=== PATIENT | male | born 1960 | race Caucasian/White ===

== ENCOUNTER 2019-03-14 07:01 | Outpatient (CLI) | payer BC, SELFPAY ==
[2019-03-14 07:22] VITALS: BMI 34.1
--- NOTE | 2019-03-14 07:23 | NMCV_ITS ---
NM mackenzie perf SPECT r/s* [id number] Joaquin Shin Age: 58 Gender: M : 1960 Exam Date: 03/14/2019 08:09 Ordering Phys: Radu Luevano PA-C XX Technologist: PAUL Ramos Exam Location: [facility] Indications: Chest pressure, hypertention, hyperlipidemia STRESS TEST Please see separate stress test report in [facility] for full findings IMAGE PROTOCOL Rest/Stress 1 Exercise Day Radiopharmaceutical Dose (mCi) Administration Site Administered by Rest: Tc-99m 10.7 IV PAUL Ramos Sestamibi Stress:Tc-99m 32.4 IV PAUL Ramos Sestamimarima Rest: 14-Mar-2019 60 Discovery 630 Stress: 14-Mar-2019 30 Discovery 630 Radiopharmaceutical was injected at 85 % maximum heart rate. Images obtained in supine and prone position. SPECT RESULTS Technical Quality: Good Raw Data Analysis: Adequate Image Corrections: Patient motion artifact - motion correction applied to stress images. Summed Stress Score: 5 Summed Rest Score: 6 Summed Difference Score: 1 PERFUSION FINDINGS Medium-size area of decreased tracer uptake noted from basal to distal inferior inferoseptal and inferolateral wall on the rest images which improved significantly over stress images suggestive of artifact. FUNCTIONAL RESULTS (calculated via Gated SPECT) Stress Image LV EF (%): 61 Stress EDV (mL):87 TID: 1 Stress ESV (mL):34 Rest Image LV EF (%): 1 FUNCTIONAL FINDINGS: There is normal left ventricular systolic function. IMPRESSIONS Myocardial perfusion imaging is normal and low probability for obstructive coronary artery disease. EKG segment will be augmented separately. Pradeep Sumner MD (Electronically Signed) Final Date: 15 March 2019 09:58 S
--- NOTE | 2019-03-14 07:23 | ECG_ITS ---
NAME OF STUDY: EXERCISE SESTAMIBI STRESS TEST INDICATION: Chest Pain, EXERCISE TREADMILL STRESS ORDERING PHYSICIAN: Gerald Luevano CLINICAL INFORMATION: Unknown INTERPRETATION: 1. The patient exercised for 10 minutes and 6 seconds on a Nato protocol. He reached a maximum heart rate of 147 beats per minute, which is 89 % of his maximum predicted heart rate. The test was stopped due to achieving the desired heart rate. 2. The baseline electrocardiogram reveals sinus rhythm with unusual R wave progression and LVH by voltage. 3. With exercise, there were no ST segment changes to suggest ischemia. 4. The resting blood pressure was 141/95. The maximum blood pressure was 198/108. 5. At maximum exercise, the patient achieved 13.5 METs with a rate pressure product of 289. 6. The patient experienced no chest pain or arrhythmias during the examination. CONCLUSION: 1. Normal exercise treadmill test. 2. Average exercise capacity for age. 3. Hypertensive blood pressure response to exercise. 4. Nuclear imaging to follow Electronically Signed On 03-14-2019 17:49:26 MATH AND SCIENCES DEPARTMENT CHAIR by Arcenio Gross M.D. [email or web address]
[2019-03-14 09:24] VITALS: PULSE 95
== END 2019-03-14 07:02 | disposition home or self-care (01) ==
LOC: CDL 07:05
PROVIDERS: Family Provider Physician Assistant Medical; Visit Provider Physician Assistant Medical
DX: R07.89 Other chest pain (principal); I10 Essential (primary) hypertension; E78.5 Hyperlipidemia, unspecified
CPT/HCPCS: 78452; 93017; A9500

== ENCOUNTER 2020-12-06 13:29 | Outpatient (CLI) | payer OTHER, SELFPAY ==
--- NOTE | 2020-12-06 13:38 | CT_ITS ---
WS: [id number] CT CHEST, ABDOMEN AND PELVIS WITH CONTRAST HISTORY: HX OF RECTAL CANCER, short of breath and chest pressure. TECHNIQUE: Contiguous 5 mm axial imaging performed through the chest, abdomen and pelvis with IV cont rast, oral contrast has been provided. Coronal and sagittal reformats chest. Coronal and sagittal ref ormats through the abdomen and pelvis. All CT scans at [facility] use at least one of these d ose optimization techniques: automated exposure control; mA and/or kV adjustment per patient size (in cludes targeted exams where dose is matched to clinical indication); or iterative reconstruction. CONTRAST: Omnipaque 300; 120 mL IV. DLP: 2112.05 mGy.cm COMPARISON: 04/16/[address]: No pulmonary mass or suspicious nodules. There is a micronodule in the LEFT upper lobe. No pneumonia. No effusions. Heart size is normal. No pericardial or pleural effusion. Mild atheroscleros is aorta. No aneurysm of aorta. Normal size pulmonary artery. No mediastinal or hilar adenopathy. Purvi y small hiatal hernia. Abdomen CT: Previously described hemangioma adjacent to the falciform ligament is very small and near ly completely fills in on today's study. No new or additional masses. Normal portal vein. Gallbladder , pancreas, spleen and adrenal glands are negative. Normal size kidneys. Exophytic RIGHT renal cyst w ith a maximum diameter of 2.7 cm is unchanged. Bilateral parapelvic cysts with no obstruction. Mild a therosclerosis aorta. No ascites or adenopathy within the abdomen. The appendix is normal. No GI tract obstruction. No abnormality noted at the rectum. Pelvic CT: No free fluid or adenopathy in the pelvis. Urinary bladder is normal. No enlargement of th e prostate gland. No osteoblastic or osteolytic bone disease. CT/CT chest abd pel w con* IMPRESSION: 1. No evidence for metastatic disease within the chest, abdomen or pelvis. 2. RIGHT renal cysts and benign bilateral parapelvic cysts within each kidney. 3. Normal appendix. 4. No mediastinal, retroperitoneal and mesenteric adenopathy.
[2020-12-06] MEDS: iohexol 300 mg/mL 50 mL Btl PO (15:06)
[2020-12-06] MEDS: iohexol 300 mg/mL 100 mL Btl IV (15:07)
== END 2020-12-06 13:30 | disposition home or self-care (01) ==
LOC: RAD 13:32
PROVIDERS: PCP Physician Assistant Medical; Visit Provider Colon & Rectal Surgery
DX: Z85.048 Personal history of other malignant neoplasm of rectum, rectosigmoid junction, and anus (principal); R06.02 Shortness of breath; R07.9 Chest pain, unspecified; Q61.02 Congenital multiple renal cysts
CPT/HCPCS: 71260; 74177

== ENCOUNTER 2020-12-07 10:40 | Outpatient (CLI) | payer OTHER, SELFPAY ==
[2020-12-07 12:39] LABS: Basophils % 0.3 %; Eosinophils # 0.1 10^3/uL (0.0-0.8); Eosinophils % 1.3 %; Hemoglobin 15.3 g/dL (11.7-16.6); Lymphocytes # 1.5 10^3/uL (0.8-4.8); Lymphocytes % 19.8 %; Mean Corpuscular HGB Conc 33.3 g/dL (30.0-36.0); Mean Corpuscular Hemoglobin 30.9 pg (28.0-34.0); Mean Corpuscular Volume 92.9 fl (80-94); Mean Platelet Volume 9.6 fL (7.4-10.4); Monocytes # 0.5 10^3/uL (0.2-0.9); Monocytes % 6.3 %; Neutrophils # 5.49 10^3/uL (1.8-7.7); Neutrophils % 71.9 %; Nucleated Red Blood Cells % 0 %; Platelet Count 237 10^3/cmm (130-400); Red Blood Count 4.95 10^6/uL (4.1-5.3); White Blood Count 7.6 10^3/uL (4.0-10.0)
[2020-12-07 13:22] LABS: Carcinoembryonic Antigen 2.7 ng/mL (0.0-4.7)
[2020-12-07 14:58] LABS: LAB Peripheral Smear Sent for Review
--- NOTE | 2020-12-07 16:56 | ONC CON_ITS ---
Dr. Tristan New Patient Note Patient: Joaquin Shin Unit #: [id number]: 1960 Dicatated By: Brian Tristan M.D.Date of Visit: Dec 07, 2020 Onc MED New Patient/Consult Referring Physician: Dr. ADELITA PERDOMO M.D. Chief Complaint: Elevated CEA. History of Present Illness: This is a 60-year-old man with a known history of rectal cancer. I am asked to see him because of an elevated CEA level. In March 2017 he was found on screening colonoscopy to have a 2 cm pedunculated polyp in the rectum at 10 cm from the anal verge. The polyp was removed piecemeal with a hot snare. An additional 5 mm sessile polyp was removed with cold biopsy forceps. The pathology report describes an aggregate of smaller polypoid tissues showing tubulovillous adenoma with moderate, focally severe dysplasia and a larger intact polyp measuring 1.1 cm which showed tubulovillous adenoma with microinvasive adenocarcinoma arising in severe dysplasia/carcinoma in situ. Dysplasia was noted to be extending to the inked margin. The smaller intact polyp showed tubulovillous adenoma with moderate dysplasia which also was noted to be extending to the inked margin. He was referred to Dr. Tipton in [place] and in April 2017 he underwent transanal minimally invasive malignant polyp excision. Pathology was negative for residual dysplasia or invasive carcinoma. A surveillance colonoscopy in December 2018 showed no abnormalities. On a recent follow-up with stephon Luevano he was complaining of significant fatigue and exertional dyspnea. His laboratory studies on 10/29/2020 included CBC showing hemoglobin of 15.9 g with hematocrit 47.8%. The white blood cell count was 9200 and the platelet count was 374,000. The differential at that time did report 11% bands and 2% metamyelocytes along with 60% neutrophils, 23% lymphocytes, and 4% monocytes. Comprehensive metabolic profile showed normal renal function, normal bilirubin, and normal liver enzymes. His B12 level was normal at 1122 pg/mL. His CEA was slightly elevated at 4.3 ng/mL. CT scans of the chest, abdomen, and pelvis on 12/06/2020 showed a micronodule in the upper lobe of the left lung. There were no other pulmonary nodules and there is no mediastinal or hilar adenopathy. A previously described hemangioma adjacent to the falciform ligament appeared to be very small. There are no new or additional masses identified. There is no ascites or adenopathy noted within the abdomen. Overall, there was no evidence for metastatic disease. He complains that he is had no energy for the past couple of years, that has continued to gradually worsen. He gets exhausted with activity, but he is still working 12 to 14 hours a day. He has continued to do all his normal activity, though slower. His ECOG score is 0. He has good appetite. He has had a weight gain in the range of 15 pounds. He has not had fever. About a month ago he was having sweating every night, but that seems to have resolved. He has had decline in his vision and he also has hearing loss. He reports having sore throat and he sometimes has difficulty swallowing. He says he chokes real easily. He gets short of breath with activity and he has a dry cough. He is on CPAP for obstructive sleep apnea. He has been having pressure in the substernal area, mainly at night, though it also occurs with heavy exertion. He had a negative stress test in February 2019. He has no GI or complaints other than occasional acid reflux. He has some joint pain and he has lower back pain. He also complains of having pain on the bottoms of his feet and he is prone to having muscle cramps in his hands. He has chronic headaches. Lately those have been really bad, mainly in the right frontal area. He sometimes has orthostatic lightheadedness. He has numbness in his neck and left arm and he has carpal tunnel symptoms bilaterally. He has restless leg syndrome, though it is pretty well controlled with the ropinirole. Past Medical History: He has a history of rectal cancer. His other medical history includes carpal tunnel syndrome, degenerative arthritis, hypertension, obstructive sleep apnea, and restless leg syndrome. Past Surgical History: His surgical/procedural history includes colonoscopy in 2019, transanal malignant polyp excision in 2018, right rotator cuff repair in 2017, and left rotator cuff repair in 2005. Medications: amLODIPine Besylate 1 Tablet (of 10 mg) Oral daily, Losartan Potassium 1 Tablet (of 50 mg) Oral daily, rOPINIRole HCl 2 Tablet (of 5 mg) Oral at bedtime Allergies: No Known Allergies. Social History: Mr. Shin has a life partner. 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 He has a history of smoking up to 1 pack of cigarettes daily for 12 to 15 years. He quit smoking 30 years ago. He has a history of at least moderate alcohol use, but over the past several months he has cut down his alcohol use to next to nothing . Family History: Father at age 81, cause unknown to the patient. Mother with dementia at age 88. A half brother has coronary artery disease. A sister has been treated for melanoma. Review Of Symptoms: Constitutional - He complains that he has no energy and that he gets exhausted, though he still works 12 to 14 hours a day. His appetite is good. He has had a weight gain of about 15 pounds. He has not had fever. About a month ago he was having night sweating pretty regularly, but that has resolved. His ECOG score is 0, Eyes - He has had decline in vision, ENMT - He has hearing loss. No tinnitus. No sinus congestion/drainage. No mouth sores. He has sore throat and he sometimes has difficulty swallowing. He says he chokes very easily, Hematologic/Lymphatic - He bleeds easily, Respiratory - He has shortness of breath with activity. He has a dry cough. No pleuritic pain or hemoptysis, Cardiovascular - He has pressure in the substernal area, mainly at night, but also with heavy exertion. No palpitations, Gastrointestinal - No nausea or vomiting. He occasionally has acid reflux. No diarrhea or constipation. No blood in the stool or black stools, Genitourinary (M) - No dysuria or hematuria. No urinary frequency. No urgency or incontinence, Musculoskeletal - He has some soreness in his joints. He has lower back pain. He complains of having pain on the bottoms of his feet, Integumentary - No skin rash or other skin changes, Neurologic - He has chronic headaches, which lately have been really bad. These are mainly in the right frontal area. He sometimes has dizziness. He has numbness in his neck and left arm, and he also has carpal tunnel symptoms bilaterally, Psychiatric - He has some anxiety. No depression. He does not sleep well. He is on CPAP at night. Vital Signs: Performed on Dec 07, 2020 11:05: 7, 0, 33.94 (HIGH), 2.14 sq.m, 68 in, 97 %, 69 /min, 18 /min, 116/75 mm(hg), 97.0 F (LOW), and 223.2 lbs (HIGH). Physical Examination: Constitutional - He appears to be in good general health, Eyes - Sclerae nonicteric. Conjunctivae clear, ENMT - No lesions noted in the oral cavity, Neck - No mass or thyromegaly, Hematologic/Lymphatic - No cervical, clavicular, or axillary adenopathy, Respiratory - Lungs are clear with slightly diminished air movement bilaterally, Cardiovascular - Heart rhythm is regular. There is no murmur, gallop, or rub noted, Abdomen - Soft and non-tender. Liver and spleen are not enlarged. There is no abdominal mass or ascites noted and there is no inguinal adenopathy, Back/Spine - No spine or CVA tenderness noted, Extremities - No edema. Pedal pulses are palpable bilaterally, Integumentary - No rashes. No suspicious skin lesions noted, Neurologic - No focal neurologic deficits noted. Problem List: 1. Patient with history of minimally invasive rectal cancer limited to the rectal polyp and treated in 2018 with transanal minimally invasive malignant polyp excision. He now has a slightly elevated CEA level. The clinical significance is uncertain. 2. He has significant fatigue, exertional dyspnea, and substernal pressure. A specific cause has not been determined. He currently is scheduled to have additional pulmonary and cardiac evaluation. 3. Hypertension. 4. Obstructive sleep apnea. 5. Degenerative arthritis. 6. Bilateral carpal tunnel syndrome. 7. Restless leg syndrome. Problems Addressed with this Encounter and Plan: 1. Patient with history of minimally invasive rectal cancer limited to the rectal polyp and treated in 2018 with transanal minimally invasive malignant polyp excision. He now has a slightly elevated CEA level. He has significant fatigue, exertional dyspnea, and substernal pressure, prompting concern about the possibility of metastatic disease. A slightly elevated CEA as an isolated finding is nonspecific and in the absence of any acute findings on his recent CT scans, the probability of these having metastatic disease is extremely low. As such, I would like to repeat his CEA level today. Unless it is showing a progressive increase, I do not think any further evaluation will be necessary. 2. He had a left shift on his recent CBC. The significance of that finding also is uncertain, but I will repeat his CBC and sed rate today, I also will review the blood smear. He will have further evaluation as indicated. 3. He has chronic headache, which seems to be getting worse. In the context of his fatigue, I will give him the option to have further evaluation with head MRI. However, I will plan to see him again only as needed. Signed By: Brian Tristan M.D. <<Signature on File>>
[2020-12-10 10:22] LABS: Erythrocyte Sedimentation Rate 2 mm/hr (0-10)
== END 2020-12-07 10:41 | disposition home or self-care (01) ==
LOC: ONCMED 10:44
PROVIDERS: PCP Physician Assistant Medical; Visit Provider Internal Medicine Medical Oncology
DX: R97.8 Other abnormal tumor markers (principal); Z85.048 Personal history of other malignant neoplasm of rectum, rectosigmoid junction, and anus; R53.82 Chronic fatigue, unspecified; I10 Essential (primary) hypertension; G47.33 Obstructive sleep apnea (adult) (pediatric); M19.90 Unspecified osteoarthritis, unspecified site; G56.03 Carpal tunnel syndrome, bilateral upper limbs; G25.81 Restless legs syndrome; Z79.899 Other long term (current) drug therapy
CPT/HCPCS: 36415; 82378; 85025; 85651; 99204

== ENCOUNTER 2021-07-23 02:37 | Emergency (ER) | payer OTHER, SELFPAY ==
[2021-07-23 02:42] VITALS: BMI 35.7
[2021-07-23 02:44] VITALS: BP 140/97; PULSE 86; RESP 16; TEMP 36.7; O2SAT 96
--- NOTE | 2021-07-23 02:47 | XRR_ITS ---
PROCEDURE INFORMATION: Exam: XR Chest Exam date and time: 07/23/2021 2:57 AM Age: 60 years old Clinical indication: Pain; Chest pressure; Additional info: Chest pain TECHNIQUE: Imaging protocol: XR of the chest. Views: 1 view. COMPARISON: CT chest abd pel w con* 12/06/2020 3:22 PM FINDINGS: Lungs: There are low lung volumes and crowding of the vascular markings. There are atelectatic changes at the right lung base.There is no evidence of focal pulmonary consolidation. Pleural spaces: No pleural effusion or pneumothorax. Heart/Mediastinum: Normal in size. Bones/joints: No acute fracture is identified. XR/XR chest 1V portable [id number] IMPRESSION: 1. Low lung volumes and crowding of the vascular markings with mild right basilar atelectatic changes. 2. No consolidation.
--- NOTE | 2021-07-23 02:47 | ECG_ITS ---
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 Measurements Intervals [place] Rate: 80 P: 31 AK: 185 QRS: -35 QRSD: 98 T: 11 QT: 373 QTc: 431 Interpretive Statements SINUS RHYTHM POSSIBLE LEFT ATRIAL ENLARGEMENT [-0.1mV P-WAVE IN V1/V2] LEFT AXIS DEVIATION [QRS AXIS < -30] Compared to ECG 04/12/2016 10:51:38 No significant changes Electronically Signed On 07-23-2021 17:54:53 CDT by Darwin Carrera M.D. [id number]
--- NOTE | 2021-07-23 02:47 | ED_ITS ---
HPI - Chest Pain General: Chief Complaint: Chest Pain Stated Complaint: CP Time Seen by Provider: 07/23/21 02:47 History of Present Illness: Mr. Shin is a 60-year-old gentleman with significant past medical history of hypertension presenting to the emergency department due to chest pain. He reports symptom onset at 11 PM woke him up from sleep. He endorses substernal pressure without significant radiation. He has baseline shortness of breath which is well not worse and denies other typical cardiac features. He reports intermittent episodes in the past and apparently has had stress test here as well as had cardiac evaluation at [place] and at [facility]. Overall intensity symptoms moderate. Course has persisted. No significantly from nitroglycerin. No other specific changes in health, exacerbating, or alleviating factors identified. Onset (ago): hour(s) Timing of current episode: constant Prior episodes: Yes Onset: during rest Pain location: substernal Severity: moderate Review of Systems General: Reports: 10 or more systems reviewed and unremarkable except in HPI and below PFSH ED PFSH: Family History (Updated 01/22/21 @ 13:[address]) Sister Cancer Social History (Updated 01/22/21 @ 13:01 by Helen Carbajal, CT) Smoking and tobacco status: former smoker Adopted: No service: No History of recent travel: No Physical Exam Const: COMMON NORMALS: alert GENERAL APPEARANCE: cooperative and well developed HENMT: COMMON NORMALS: normocephalic and atraumatic HEAD & SCALP: normocephalic and atraumatic THROAT: posterior oropharynx normal Eye: COMMON NORMALS: conjunctivae normal CONJUNCTIVA: Yes conjunctivae normal SCLERA: sclerae normal Neck/C-Spine: COMMON NORMALS: supple GENERAL: Yes trachea midline Resp: COMMON NORMALS: normal respiratory effort EFFORT & INSPECTION: Yes able to speak in complete sentences Cardio: COMMON NORMALS: regular rate and regular rhythm RATE: regular rate RHYTHM: regular rhythm GI: COMMON NORMALS: Soft to palpation PALPATION: Yes Soft to palpation and No Tenderness to palpation present (GI) PERCUSSION: normal to percussion Extremity: GENERAL: Yes normal exam except as noted and No edema Neuro: COMMON NORMALS: moves all extremities SENSORIUM/ORIENTATION: Yes alert and No Orientation impaired Psych: COMMON NORMALS: mental status grossly normal and Normal thought process present THOUGHT PROCESS: Normal thought process present Course ED course: - Patient was seen and evaluated by me at bedside - Patient placed on cardiac monitors, IV access obtained - Initial evaluation notable for exam as above - Labs and xrays personally interpreted by me -Aspirin given - Labs notable for no significant logic metabolic abnormality. Troponin and repeat troponin negative. - Imaging notable for no lobar consolidation or pneumothorax - Upon serial reexamination after treatment the patient was improved - Based on patient history, evaluation, and testing as interpreted the most likely cause of the patient's condition is chest pain - The results of ED evaluation were discussed with the patient including possible disposition options. I discussed risk stratification including estimated risk of major cardiac events based on heart score. Given history of stress test patient comfortable with outpatient management. I discussed symptomatic cares (if applicable) including appropriate and responsible use, followup plan, and return precautions. The patient verbalized understanding and felt safe for discharge. - Patient discharged in satisfactory condition. Note: Click bubbles or prepopulated justice in note writing are used for assistance with data collection and billing and are inherently more limited than narrative and other text portions of this note. Please use narrative for additional clinical history and defer to narrative/free test for any case of contradictory information. If information appears in only free text or click bubble it should be considered present or absent as reported. Please contact note communications writer for clarifications of clinical information or contradictory information. MDM is a brief summary, contradictory or erroneous seeming information should be clarified and full note should be reviewed. Vital Signs: Vital signs: Vital Signs Temperature 98.0 F 07/23/21 02:44 Pulse Rate 75 07/23/21 06:02 Respiratory Rate 17 07/23/21 06:02 Blood Pressure 131/91 07/23/21 06:02 Pulse Oximetry 98 07/23/21 06:02 MDM - Chest Pain Medical Decision Making 60-year-old gentleman presenting with chest pain. Patient had stress test and PFTs in December 2020. Troponins negative. Satisfactory for outpatient management. Medical Records I reviewed the patient's medical records. Lab Data I reviewed the patient's lab results. : 07/23/21 03:20 07/23/21 03:20 Radiology Impressions Chest X-Ray 07/23/21 02:47 IMPRESSION: 1. Low lung volumes and crowding of the vascular markings with mild right basilar atelectatic changes. 2. No consolidation. Laboratory Results WBC 6.3 10^3/uL (4.0-10.0) 07/23/21 03:20 RBC 4.96 10^6/uL (4.1-5.3) 07/23/21 03:20 Hgb 15.3 g/dL (11.7-16.6) 07/23/21 03:20 Hct 45.5 % (42.0-52.0) 07/23/21 03:20 MCV 91.7 fl (80-94) 07/23/21 03:20 MCH 30.8 pg (28.0-34.0) 07/23/21 03:20 MCHC 33.6 g/dL (30.0-36.0) 07/23/21 03:20 RDW 12.5 % (12.1-15.1) 07/23/21 03:20 Plt Count 200 10^3/cmm (130-400) 07/23/21 03:20 MPV 9.1 fL (7.4-10.4) 07/23/21 03:20 Neut % (Auto) 67.4 % 07/23/21 03:20 Lymph % (Auto) 20.3 % 07/23/21 03:20 [place] % (Auto) 7.8 % 07/23/21 03:20 Eos % (Auto) 3.3 % 07/23/21 03:20 Baso % (Auto) 0.6 % 07/23/21 03:20 Neut # (Auto) 4.25 10^3/uL (1.8-7.7) 07/23/21 03:20 Lymph # (Auto) 1.3 10^3/uL (0.8-4.8) 07/23/21 03:20 [place] # (Auto) 0.5 10^3/uL (0.2-0.9) 07/23/21 03:20 Eos # (Auto) 0.2 10^3/uL (0.0-0.8) 07/23/21 03:20 Baso # (Auto) 0.0 10^3/uL (0.0-0.1) 07/23/21 03:20 Nucleated RBC % (auto) 0 % 07/23/21 03:20 Nucleated RBCs # 0.0 /100WBC 07/23/21 03:20 Sodium 139 mmol/L (136-145) 07/23/21 03:20 Potassium 3.9 mmol/L (3.5-5.1) 07/23/21 03:20 Chloride 104 mmol/L (98-107) 07/23/21 03:20 Carbon Dioxide 24 mmol/L (22-29) 07/23/21 03:20 Anion Gap 14.9 (5-19) 07/23/21 03:20 BUN 16 mg/dL (6-20) 07/23/21 03:20 Creatinine 0.9 mg/dL (0.7-1.2) 07/23/21 03:20 GFR Calculation 86.7 mL/min (90-130) L 07/23/21 03:20 Glucose 117 mg/dL (65-115) H 07/23/21 03:20 Calculated Osmolality 290 mOsm/kg (285-295) 07/23/21 03:20 Calcium 9.1 mg/dL (8.5-10.5) 07/23/21 03:20 Total Bilirubin 0.4 mg/dL (0.15-1.2) 07/23/21 03:20 AST 28 U/L (0-40) 07/23/21 03:20 ALT 39 U/L (0-41) 07/23/21 03:20 Alkaline Phosphatase 103 IU/L (40-130) 07/23/21 03:20 Troponin T Baseline 6 ng/L (0-15) 07/23/21 03:20 Troponin T 120 Minute 6.00 ng/L (0-15) 07/23/21 05:05 Delta Troponin T 0 ABS# (0-10) 07/23/21 05:05 NT-Pro-B Natriuret Pep 71 pg/mL (0-125) 07/23/21 03:20 Total Protein 6.9 g/dL (6.6-8.7) 07/23/21 03:20 Albumin 4.5 g/dL (3.5-5.2) 07/23/21 03:20 Globulin 2.4 g/dL (1.3-4.6) 07/23/21 03:20 Lipase 32 U/L (13-60) 07/23/21 03:20 Discharge Plan Discharge Patient Disposition: Home Clinical Impression: Chest pain Condition: Stable Prescriptions: No Action ropinirole 5 mg tablet 5 mg PO DAILY 0RF amlodipine 10 mg tablet 10 mg PO DAILY 0RF losartan 50 mg tablet 50 mg PO DAILY 0RF isosorbide mononitrate 30 mg tablet extended release 24 hr 15 mg PO DAILY 0RF Discharge Orders: Discharge ED (Routine); Ordered 07/23/21 Ordered By: Tay Lincoln Referrals: Radu Luevano [Primary Care Provider] - Discharge Diet: Usual diet Discharge Activity: Increase activity as tolerated Patient Instructions: Chest Pain (ED) Activity Restrictions/Additional Instructions: Thank you for visiting the emergency department. You were seen and evaluated for chest pain. The exact cause of your symptoms is unclear however based on previous evaluation and current ED evaluation I do not feel that further inpatient management is required. 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 Please return to the emergency department for worsening symptoms or anything else that you are concerned about a feel needs emergency department evaluation. Coding Level of Care Code ED Grocery Packer for Bailey Fwyohana Exam Comprehensive
[2021-07-23] MEDS: aspirin 81 mg Chew Tablet 324 MG PO (03:20)
[2021-07-23 03:32] LABS: Basophils % 0.6 %; Eosinophils # 0.2 10^3/uL (0.0-0.8); Eosinophils % 3.3 %; Hematocrit 45.5 % (42.0-52.0); Hemoglobin 15.3 g/dL (11.7-16.6); Lymphocytes # 1.3 10^3/uL (0.8-4.8); Lymphocytes % 20.3 %; Mean Corpuscular HGB Conc 33.6 g/dL (30.0-36.0); Mean Corpuscular Hemoglobin 30.8 pg (28.0-34.0); Mean Corpuscular Volume 91.7 fl (80-94); Mean Platelet Volume 9.1 fL (7.4-10.4); Monocytes # 0.5 10^3/uL (0.2-0.9); Monocytes % 7.8 %; Neutrophils # 4.25 10^3/uL (1.8-7.7); Neutrophils % 67.4 %; Nucleated Red Blood Cells % 0 %; Platelet Count 200 10^3/cmm (130-400); Red Blood Count 4.96 10^6/uL (4.1-5.3); Red Cell Distribution Width 12.5 % (12.1-15.1); White Blood Count 6.3 10^3/uL (4.0-10.0)
[2021-07-23 03:49] LABS: Troponin(5th) Baseline 6 ng/L (0-15)
[2021-07-23 03:57] LABS: Alanine Aminotransferase 39 U/L (0-41); Albumin Level 4.5 g/dL (3.5-5.2); Alkaline Phosphatase 103 IU/L (40-130); Anion Gap 14.9 (5-19); Aspartate Amino Transferase 28 U/L (0-40); Blood Urea Nitrogen 16 mg/dL (6-20); Calcium 9.1 mg/dL (8.5-10.5); Carbon Dioxide 24 mmol/L (22-29); Chloride 104 mmol/L (98-107); Globulin 2.4 g/dL (1.3-4.6); Glomerular Filtration Rate 86.7 mL/min (90-130); Glucose 117 mg/dL (65-115); Lipase 32 U/L (13-60); NT Pro B Type Natriuretic Pept 71 pg/mL (0-125); Osmolality Calculated 290 mOsm/kg (285-295); Potassium 3.9 mmol/L (3.5-5.1); Sodium 139 mmol/L (136-145); Total Bilirubin 0.4 mg/dL (0.15-1.2); Total Protein 6.9 g/dL (6.6-8.7)
[2021-07-23] MEDS: lidocaine 2% viscous 15 ML, aluminum-mag hydrox-simethicon 30 ML, sucralfate oral liq 1 GM PO (04:06)
[2021-07-23 04:14] VITALS: BP 138/97; PULSE 78; RESP 23; O2SAT 97
--- NOTE | 2021-07-23 04:47 | ECG_ITS ---
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 Measurements Intervals [place] Rate: 76 P: 38 [place]: 182 QRS: -38 QRSD: 99 T: 11 QT: 373 QTc: 421 Interpretive Statements SINUS RHYTHM POSSIBLE LEFT ATRIAL ENLARGEMENT [-0.1mV P-WAVE IN V1/V2] LEFT AXIS DEVIATION [QRS AXIS < -30] Compared to ECG 07/23/2021 03:13:00 No significant changes Electronically Signed On 07-23-2021 18:11:55 CDT by Darwin Carrera M.D. [id number]
[2021-07-23 06:02] VITALS: BP 131/91; PULSE 75; RESP 17; O2SAT 98
[2021-07-23 06:03] LABS: Troponin 5 2HR Delta 0 ABS# (0-10)
== END 2021-07-23 06:04 | disposition home or self-care (01) ==
PROVIDERS: Emergency Provider Emergency Medicine; PCP Physician Assistant Medical
DX: R07.9 Chest pain, unspecified (principal)
CPT/HCPCS: 71045; 80053; 83690; 83880; 84484; 85025; 93005; 99285

== ENCOUNTER 2022-08-07 20:00 | Outpatient (CLI) | payer OTHER, SELFPAY | END 2022-08-07 20:01 | disposition home or self-care (01) | LOC: SLEEP 08-08 05:49 | PROVIDERS: PCP Physician Assistant Medical; Visit Provider Family Medicine | DX: G47.33 Obstructive sleep apnea (adult) (pediatric) (principal) | CPT/HCPCS: 95810 ==

== ENCOUNTER 2023-01-31 20:31 | Emergency (ER) | payer OTHER, SELFPAY ==
--- NOTE | 2023-01-31 20:36 | ECG_ITS ---
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 Measurements Intervals [place] Rate: 88 P: 42 [place]: 175 QRS: -43 QRSD: 106 T: 34 QT: 386 QTc: 468 Interpretive Statements SINUS RHYTHM POSSIBLE LEFT ATRIAL ENLARGEMENT [-0.1mV P-WAVE IN V1/V2] LEFT AXIS DEVIATION [QRS AXIS < -30] PATTERN CONSISTENT WITH PULMONARY DISEASE Compared to ECG 07/23/2021 05:05:53 No significant changes Electronically Signed On 02-01-2023 19:39:23 SPECIAL PROJECTS MANAGER by Temitope Mccann M.D. [id number]
[2023-01-31 20:39] VITALS: BP 123/79; PULSE 89; RESP 18; TEMP 36.6; O2SAT 97
--- NOTE | 2023-01-31 20:48 | CTR_ITS ---
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 C/O neck pain. TECHNIQUE: Imaging protocol: Computed tomography of the cervical spine without contrast. Radiation optimization: All CT scans at this facility use at least one of these dose optimization techniques: automated exposure control; mA and/or kV adjustment per patient size (includes targeted exams where dose is matched to clinical indication); or iterative reconstruction. REPORTING DATA: Count of CT and Cardiac NM exams in prior 12 months: This patient has received 0 known CTs and 0 known cardiac nuclear medicine studies in the 12 months prior to the current study. COMPARISON: CT chest abdpel w/*[id number] 12/06/2020 3:22 PM RADIATION DOSE METRICS: Total DLP (mGy-cm): 790.77 FINDINGS: Bones/joints: Craniocervical and facet alignment is preserved. Vertebral body heights maintained. No acute fracture. Lungs: Unremarkable. Soft tissues: Unremarkable. CT/CT cervical spin wo con* [id number] IMPRESSION: No acute fracture or traumatic malalignment.
--- NOTE | 2023-01-31 20:48 | CTR_ITS ---
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 C/O anterior chest pain with posterior radiation. History of thoracic aortic aneurysm. ; Additional info: HX aortic aneurysm fall cp TECHNIQUE: Imaging protocol: Computed tomographic angiography of the chest with contrast. Exam focused on the arteries. 3D rendering (Not supervised by radiologist): MIP and/or 3D reconstructed images were created by the technologist. Radiation optimization: All CT scans at this facility use at least one of these dose optimization techniques: automated exposure control; mA and/or kV adjustment per patient size (includes targeted exams where dose is matched to clinical indication); or iterative reconstruction. Contrast material: OMNI 350; Contrast volume: 100 ml; Contrast route: INTRAVENOUS (IV); REPORTING DATA: Count of CT and Cardiac NM exams in prior 12 months: This patient has received 0 known CTs and 0 known cardiac nuclear medicine studies in the 12 months prior to the current study. COMPARISON: CT chest abdpel w/*[id number] 12/06/2020 3:22 PM RADIATION DOSE METRICS: Total DLP (mGy-cm): 867.31 FINDINGS: Pulmonary arteries: No pulmonary emboli. Aorta: No findings of acute aortic syndrome. Unchanged ascending thoracic aortic aneurysm measuring up to 4.4 cm. Mild aortic arch atherosclerotic calcifications. Thyroid: No actionable thyroid nodules by size criteria. Lungs: No consolidation. No masses. Pleural spaces: Unremarkable. No pneumothorax. No pleural effusion. Heart: No cardiomegaly. No pericardial effusion. Lymph nodes: No enlarged lymph nodes. Bones/joints: No aggressive osseous lesions. No acute fracture. Soft tissues: Unremarkable. CT/CT angio chest [id number] IMPRESSION: 1. No acute abnormality. 2. Unchanged ascending thoracic aortic aneurysm measuring up to 4.4 cm.
--- NOTE | 2023-01-31 20:48 | XRR_ITS ---
PROCEDURE INFORMATION: Exam: XR Chest Exam date and time: 01/31/2023 9:02 PM Age: 62 years old Clinical indication: Injury or trauma; Patient HX: Lt anterior chest pain post 5ft fall onto log; SOB TECHNIQUE: Imaging protocol: Radiologic exam of the chest. Views: 1 view. COMPARISON: CR XR chest 1V portable [id number] 07/23/2021 2:57 AM FINDINGS: Lungs: No consolidation. Pleural spaces: No large pleural effusion. No pneumothorax. Heart/Mediastinum: Unremarkable cardiomediastinal silhouette. Bones/joints: No acute findings. No visible acute displaced rib fracture. XR/XR chest 1V portable [id number] IMPRESSION: No acute findings.
[2023-01-31 21:09] LABS: Basophils % 0.5 %; Eosinophils # 0.1 10^3/uL (0.0-0.8); Eosinophils % 1.4 %; Hematocrit 44.1 % (37-53); Lymphocytes % 11.6 %; Mean Corpuscular HGB Conc 34.5 g/dL (30-55); Mean Corpuscular Hemoglobin 31.6 pg (27-33); Mean Corpuscular Volume 91.7 fl (82-101); Mean Platelet Volume 8.9 fL (7.4-10.4); Monocytes # 0.5 10^3/uL (0.2-0.9); Monocytes % 5.8 %; Neutrophils # 6.91 10^3/uL (1.8-7.7); Neutrophils % 80.4 %; Nucleated Red Blood Cells % 0 %; Platelet Count 226 10^3/cmm (157-399); Red Blood Count 4.81 10^6/uL (3.85-5.65); Red Cell Distribution Width 12.8 % (12.1-15.1)
[2023-01-31] MEDS: iohexol 350 mg/mL 500 mL Btl (per mL) IV (21:11)
[2023-01-31 21:21] LABS: INR 0.91 (0.8-1.2); Partial Thromboplastin Time 25.7 SECONDS (23.9-36.7)
[2023-01-31] MEDS: ondansetron 2 mg/ML SDV 2 mL 4 MG IVP (21:25)
[2023-01-31 21:32] VITALS: RESP 24; O2SAT 95
[2023-01-31] MEDS: morphine 4 mg/mL SDV 1 mL IVP (21:32)
[2023-01-31 21:45] LABS: Troponin(5th) Baseline 7 ng/L (0-15)
[2023-01-31 21:47] LABS: Alanine Aminotransferase 30 U/L (0-41); Albumin Level 4.5 g/dL (3.5-5.2); Alkaline Phosphatase 100 U/L (40-130); Anion Gap 15.7 (5-19); Aspartate Amino Transferase 40 U/L (0-40); Blood Urea Nitrogen 14 mg/dL (8-23); C Reactive Protein 6.7 mg/L (0.0-4.9); Calcium 9.3 mg/dL (8.5-10.5); Carbon Dioxide 25 mmol/L (22-29); Chloride 103 mmol/L (98-107); Globulin 1.9 g/dL (1.3-4.6); Glomerular Filtration Rate 76.2 mL/min (90-130); Glucose 139 mg/dL (65-115); Osmolality Calculated 293 mOsm/kg (285-295); Potassium 3.7 mmol/L (3.5-5.1); Sodium 140 mmol/L (136-145); Total Bilirubin 0.7 mg/dL (0.15-1.2); Total Protein 6.4 g/dL (6.6-8.7)
--- NOTE | 2023-01-31 22:30 | W.ED.CHESTPA ---
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 He states that it hurts to breathe. Significant pain with cough. No bloody sputum. The patient relates a documented history of a thoracic aneurysm diagnosed in the past. He is mildly short of breath. Associated symptoms: Reports dyspnea; Deny abdominal pain, fever(s), nausea, palpitations or vomiting Review of Systems Const: Denies: fever(s), chills or body aches Eyes: Denies: change in vision Card: Denies: chest pain or palpitations Resp: Reports: dyspnea and non-productive cough; Denies: productive cough or wheezing GI: Denies: abdominal pain, nausea, vomiting, diarrhea or hematochezia Skin/Breast: Denies: rash Neuro: Denies: headache(s), weakness in extremities, dizziness or confusion PFS ED PFSH: Medical History Hypertension RLS (restless legs syndrome) Hx of colon cancer, stage I Surgical History H/O repair of right rotator cuff History of repair of left rotator cuff Family History Sister Cancer Social History Smoking and tobacco/nicotine status: never used tobacco/nicotine Adopted: No service: No Physical Exam Const: COMMON NORMALS: no acute distress GENERAL APPEARANCE: cooperative; not ill appearing and not frail appearing HENMT: COMMON NORMALS: normocephalic, atraumatic and Normal external nose present HEAD & SCALP: normocephalic and atraumatic FACE & SINUS: normal facial exam and face symmetric NOSE: Normal external nose present Eye: COMMON NORMALS: Equal, round and reactive pupils present and EOMs intact bilaterally PUPIL: Yes Equal, round and reactive pupils present Neck/C-Spine: GENERAL: Yes trachea midline Chest: CHEST: Yes Symmetrical chest wall rise and Yes tenderness (Left anterior chest wall and posterior chest wall) Resp: COMMON NORMALS: normal respiratory effort, No retractions, No use of accessory muscles and clear to auscultation bilaterally AUSCULTATION: clear to auscultation bilaterally Cardio: COMMON NORMALS: regular rate and regular rhythm RATE: regular rate RHYTHM: regular rhythm GI: COMMON NORMALS: Normal to inspection, nondistended, normoactive bowel sounds present Extremity: COMMON NORMALS: no pedal edema Neuro: JA COMA SCALE: document GCS findings Ja coma scale eye opening: Spontaneous Ja coma scale verbal response: Orientated [place] coma scale motor response: Obey commands [place] coma scale total score: 15 SENSORY EXAM: Yes extremities (intact) Psych: COMMON NORMALS: speech normal SPEECH: Yes normal speech Skin: COMMON NORMALS: no rashes or lesions noted GENERAL SKIN EXAM: no rashes or lesions noted Course Vital Signs: Vital signs: Vital Signs Temperature 97.9 F 01/31/23 20:39 Pulse Rate 89 01/31/23 20:39 Respiratory Rate 24 H 01/31/23 21:32 Blood Pressure 123/79 01/31/23 20:39 Pulse Oximetry 95 01/31/23 21:32 Oxygen Delivery Me thod Room Air 01/31/23 20:39 MDM - Chest Pain Medical Decision Making 62-year-old male with left sided chest pain, worse with breathing after a fall this morning. His vitals are good. Chest x-ray was negative. He has a documented history of a thoracic aneurysm. CTA of the chest was performed, and shows a stable appearing aneurysm. No acute fractures. No pulmonary contusion. No PE. CBC and BMP are not remarkable. INR is normal. He will be allowed discharge. Pain control. Lab Data 01/31/23 20:59 01/31/23 20:59 Radiology Impressions Cervical Spine CT 01/31/23 20:48 IMPRESSION: No acute fracture or traumatic malalignment. Chest CTA 01/31/23 20:48 IMPRESSION: 1. No acute abnormality. 2. Unchanged ascending thoracic aortic aneurysm measuring up to 4.4 cm. Chest X-Ray 01/31/23 20:48 IMPRESSION: No acute findings. Laboratory Results WBC 8.60 10^3/uL (3.29-11.43) 01/31/23 20:59 RBC 4.81 10^6/uL (3.85-5.65) 01/31/23 20:59 Hgb 15.20 g/dL (11.27-16.99) 01/31/23 20:59 Hct 44.1 % (37-53) 01/31/23 20:59 MCV 91.7 fl (82-101) 01/31/23 20:59 MCH 31.6 pg (27-33) 01/31/23 20:59 MCHC 34.5 g/dL (30-55) 01/31/23 20:59 RDW 12.8 % (12.1-15.1) 01/31/23 20:59 Plt Count 226 10^3/cmm (157-399) 01/31/23 20:59 MPV 8.9 fL (7.4-10.4) 01/31/23 20:59 Neut % (Auto) 80.4 % 01/31/23 20:59 Lymph % (Auto) 11.6 % 01/31/23 20:59 [place] % (Auto) 5.8 % 01/31/23 20:59 Eos % (Auto) 1.4 % 01/31/23 20:59 Baso % (Auto) 0.5 % 01/31/23 20:59 Neut # (Auto) 6.91 10^3/uL (1.8-7.7) 01/31/23 20:59 Lymph # (Auto) 1.0 10^3/uL (0.8-4.8) 01/31/23 20:59 [place] # (Auto) 0.5 10^3/uL (0.2-0.9) 01/31/23 20:59 Eos # (Auto) 0.1 10^3/uL (0.0-0.8) 01/31/23 20:59 Baso # (Auto) 0.0 10^3/uL (0.0-0.1) 01/31/23 20:59 Nucleated RBC % (auto) 0 % 01/31/23 20:59 Nucleated RBCs # 0.0 /100WBC 01/31/23 20:59 PT 12.60 SECONDS (12.1-14.9) 01/31/23 20:59 INR 0.91 (0.8-1.2) 01/31/23 20:59 APTT 25.7 SECONDS (23.9-36.7) 01/31/23 20:59 Sodium 140 mmol/L (136-145) 01/31/23 20:59 Potassium 3.7 mmol/L (3.5-5.1) 01/31/23 20:59 Chloride 103 mmol/L (98-107) 01/31/23 20:59 Carbon Dioxide 25 mmol/L (22-29) 01/31/23 20:59 Anion Gap 15.7 (5-19) 01/31/23 20:59 BUN 14 mg/dL (8-23) 01/31/23 20:59 Creatinine 1.0 mg/dL (0.7-1.2) 01/31/23 20:59 GFR Calculation 76.2 mL/min (90-130) L 01/31/23 20:59 Glucose 139 mg/dL (65-115) H 01/31/23 20:59 Calculated Osmolality 293 mOsm/kg (285-295) 01/31/23 20:59 Calcium 9.3 mg/dL (8.5-10.5) 01/31/23 20:59 Total Bilirubin 0.7 mg/dL (0.15-1.2) 01/31/23 20:59 AST 40 U/L (0-40) 01/31/23 20:59 ALT 30 U/L (0-41) 01/31/23 20:59 Alkaline Phosphatase 100 U/L (40-130) 01/31/23 20:59 Troponin T Baseline 7 ng/L (0-15) 01/31/23 20:59 C-Reactive Protein 6.7 mg/L (0.0-4.9) H 01/31/23 20:59 Total Protein 6.4 g/dL (6.6-8.7) L 01/31/23 20:59 Albumin 4.5 g/dL (3.5-5.2) 01/31/23 20:59 Globulin 1.9 g/dL (1.3-4.6) 01/31/23 20:59 Blood Type O Positive 01/31/23 20:59 Rho(D) Type Rh positive 01/31/23 20:59 Antibody Screen Negative 01/31/23 20:59 All radiology interpretation(s) finalized by discharge Discharge Plan Discharge Patient Disposition: Home Clinical Impression: Chest wall contusion Condition: Stable Prescriptions: New hydrocodone-acetaminophen 5-325 mg tablet 1 tab PO Q8H PRN (Reason: pain) Qty: 9 0RF No Action ropinirole 5 mg tablet 5 mg PO DAILY amlodipine 10 mg tablet 10 mg PO DAILY losartan 50 mg tablet 50 mg PO DAILY isosorbide mononitrate 30 mg tablet extended release 24 hr 15 mg PO DAILY Discharge Orders: Discharge ED (Routine); Ordered 01/31/23 Ordered By: Loy Montague Patient Instructions: Pulmonary Contusion (ED) Activity Restrictions/Additional Instructions: Return for worsening pain despite treatment, worsening shortness of breath, fever, lethargy, other concerning symptoms. See your doctor next week for follow-up. Coding Level of Care Code ED Filter Plant Operator for Bailey Duval
[2023-01-31 22:55] VITALS: BP 112/53; PULSE 62; O2SAT 93
== END 2023-01-31 22:55 | disposition home or self-care (01) ==
PROVIDERS: Emergency Provider Emergency Medicine
DX: S20.212A Contusion of left front wall of thorax, initial encounter (principal); I71.21 Aneurysm of the ascending aorta, without rupture; I10 Essential (primary) hypertension; Z85.038 Personal history of other malignant neoplasm of large intestine; W17.89XA Other fall from one level to another, initial encounter
CPT/HCPCS: 71045; 71275; 72125; 80053; 84484; 85025; 85610; 85730; 86140; 86850; 86900; 93005; 96374; 96375; 99285; J2270; J2405; Q9967

== ENCOUNTER 2024-02-16 09:14 | Emergency (ER) | payer OTHER, SELFPAY ==
--- NOTE | 2024-02-16 09:17 | XR_ITS ---
WS: [id number] Right hand, 4 views, 02/16/2024 Clinical Data: Trauma Comparison: None. Findings: No fractures or dislocations are seen. There is an avulsion of the soft tissue of the starr ual tuft of the distal phalanx of the right third finger on the radial side. There is a small 0.3 cm metal foreign body in the subcutaneous tissue of the dorsal distal aspect of the third finger proxim al phalanx. The soft tissues are otherwise unremarkable. The joint spaces are normal XR/XR hand RT min 3V* [id number] Impression: 1. Avulsion injury of the soft tissue of the distal phalanx of the right third finger. 2. Small metal foreign body in subcutaneous tissue of proximal phalanx of right third finger.
[2024-02-16 09:23] VITALS: BP 130/91; PULSE 102; RESP 20; TEMP 36.7; O2SAT 90
[2024-02-16 09:38] VITALS: BP 142/84; PULSE 106; O2SAT 97
--- NOTE | 2024-02-16 09:44 | W.ED.EXTPRO ---
HPI - Extremity Problem General: Chief complaint: Extremity Injury, Upper Stated complaint: Rt hand middle finger inj Time Seen by Provider: 02/16/24 09:16 History of Present Illness: 63-year-old male presents emergency room he had avulsion of the tip of his right third finger. He self cauterized the wound and continue to work. He has a subungual hematoma and the nail at this time. The tissue that was crushed was completely avulsed and is missing. He is unsure of his last tetanus shot. Related Data Home Medications Medication Instructions Recorded Confirmed amlodipine 10 mg tablet 10 mg PO QPM 12/31/20 02/16/24 losartan 50 mg tablet 50 mg PO QPM 12/31/20 02/16/24 ropinirole 5 mg tablet 5 mg PO QPM 12/31/20 02/16/24 ondansetron HCl 4 mg tablet 4 mg PO Q6H PRN Nausea 02/16/24 02/16/24 Previous Rx's Medication Instructions Recorded amoxicillin 875 mg-potassium 1 tab PO BID #20 tabs 02/16/24 clavulanate 125 mg tablet mupirocin 2 % topical ointment 1 applic topical DAILY #22 grams 02/16/24 Allergies Allergy/AdvReac Type Severity Reaction Status Date / Time No Known Allergies Allergy Verified 01/31/23 20:44 PFSH ED PFSH: Medical History Hypertension RLS (restless legs syndrome) Hx of colon cancer, stage I Surgical History H/O repair of right rotator cuff History of repair of left rotator cuff Family History Sister Cancer Social History Smoking and tobacco/nicotine status: never used tobacco/nicotine Adopted: No service: No Physical Exam Const: COMMON NORMALS: no acute distress GENERAL APPEARANCE: cooperative and comfortable ORIENTATION/CONSCIOUSNESS: Yes awake, Yes oriented to person, Yes oriented to place and Yes oriented to time Extremity: OTHER: Examination of the right third finger completely avulsed lateral tip of the finger portion of the nail is missing as well there is a subungual hematoma. Nail was trephinated. No potential for closure of the wound primarily. No protruding bone. Neuro: SENSORIUM/ORIENTATION: Yes oriented to person, Yes oriented to place and Yes oriented to time Procedures Nail Trephination Time out: Yes Location (finger): right Location (toes): third digit Sterile prep: chlorhexidine Method of drainage: nail cautery Procedure successful: Yes Patient tolerated procedure: well Course Vital Signs: Vital signs: Vital Signs Temperature 98.1 F 02/16/24 09:23 Pulse Rate 98 02/16/24 11:13 Respiratory Rate 20 H 02/16/24 09:23 Blood Pressure 126/80 02/16/24 11:13 Pulse Oximetry 96 02/16/24 11:13 Oxygen Delivery Me thod Room Air 02/16/24 09:38 MDM - Extremity (Nontraumatic) Medical Decision Making Nail trephinated. Started on Augmentin. And apply mupirocin daily to the wound recheck in 1 week with the primary care doctor Lab Data Radiology Impressions Hand X-Ray 02/16/24 09:17 Impression: 1. Avulsion injury of the soft tissue of the distal phalanx of the right third finger. 2. Small metal foreign body in subcutaneous tissue of proximal phalanx of right third finger. All radiology interpretation(s) finalized by discharge Discharge Plan Discharge Patient Disposition: Home Clinical Impression: Avulsion of finger tip Condition: Stable Prescriptions: New mupirocin 2 % ointment 1 applic topical DAILY Qty: 22 0RF amoxicillin-pot clavulanate 875-125 mg tablet 1 tab PO BID Qty: 20 0RF No Action ropinirole 5 mg tablet 5 mg PO QPM amlodipine 10 mg tablet 10 mg PO QPM losartan 50 mg tablet 50 mg PO QPM ondansetron HCl 4 mg tablet 4 mg PO Q6H PRN (Reason: Nausea) Discharge Orders: Discharge ED (Routine); Ordered 02/16/24 Ordered By: Gus Damian Discharge Diet: Usual diet Discharge Activity: Increase activity as tolerated Patient Instructions: Opioid Safety, Pain Management Activity Restrictions/Additional Instructions: Thank you for choosing [facility] for your healthcare needs today. It is very important that you follow up as instructed or that you return to the Emergency Department should you have concerns or if your condition changes or worsens in any way. You were seen for an avulsion of the fingertip of your right third finger. I advised applying topical antibiotic ointment daily and starting the oral antibiotic you are prescribed. Elevate you can use Tylenol ibuprofen for discomfort. Recommend wearing bulky padded bandage to prevent bumping the fingertip which may cause further discomfort. Your x-rays did not show any fractures. Follow-up with your primary care doctor the wound will have to heal by secondary intent. We did trephinate your nail (burn holes in the nail to relieve pressure). Coding Level of Care Code ED [employer] for Bailey Duval
[2024-02-16 11:13] VITALS: BP 126/80; PULSE 98; O2SAT 96
== END 2024-02-16 11:15 | disposition home or self-care (01) ==
PROVIDERS: Emergency Provider Family Medicine
DX: S61.302A Unspecified open wound of right middle finger with damage to nail, initial encounter (principal); X58.XXXA Exposure to other specified factors, initial encounter
CPT/HCPCS: 73130; 99283